=== PATIENT | male | born 1995 | race Caucasian/White ===

== ENCOUNTER 2017-12-15 05:55 | Inpatient (IN) | payer BC ==
[~2017-12-15] VITALS: Ht 190.5 cm; Wt 131.7 kg
[2017-12-15] VITALS (9 sets, daily range): BP systolic 121–162; BP diastolic 57–96; PULSE 55–73; RESP 16–20; TEMP 97.6–98.4; O2SAT 8–100
--- NOTE | 2017-12-15 06:53 | PD ---
HPI Chief Complaint: Chest Pain Time Seen by Provider: 06:47 Travel History International Travel<30 days: No Contact w/Intl Traveler<30days: No Traveled to known affect area: No History of Present Illness HPI 22-year-old male presents to the emergency department by a nonemergent transport from home for complaint of retrosternal chest pain that has been intermittent for the past 3 evenings. Patient is concerned because he is visiting from [place]. Patient reportedly was diagnosed with possibly endocarditis or pericarditis a urinary half ago. Patient denies any fever chills. Patient's had no recent respiratory illness. Patient states when he was diagnosed for this condition he stated the hospital for 4 days and then was discharged on some type of medication but he can't report was but specifically was not an antibiotic. Patient denies substance use alcohol use or tobacco use. Patient has no family history of cardiac disease. Patient denies family history or personal history of clotting disorder. Patient is not noticed any swelling or pain in the lower extremities after his plane flight. Patient does not describe the pain is pleuritic in nature. Patient is not noted any shortness of breath. Patient states after arriving here he did eat out for dinner and that evening did have episodes of vomiting and diarrhea. Patient states he's never had issues with his esophagitis or reflux. Patient states that he takes acetaminophen and it resolves the discomfort. Patient states he takes acetaminophen 3 hours prior to arrival to the emergency department this morning and he is pain-free. Patient denies other concerns or complaints. Patient presently has no history of hypertension dyslipidemia diabetes or tobaccoism. No family history premature onset heart disease. PFSH Past Medical History Narrative Medical Possible endocarditis versus pericarditis; no tobacco use no substance use no surgery; nursing notes reviewed Cardiovascular Problems: Yes (POSS ENDOCARDITIS) Diminished Hearing: No Musculoskeletal: Yes (HC DISLOCATED RIGHT KNEE) Past Surgical History Surgical History: No Previous Surgery Social History Alcohol Use: Yes (OCC) Tobacco Use: No Substance Use: Yes (WEED) Allergies-Medications (Allergen,Severity, Reaction): Coded Allergies: No Known Allergies (Unverified , 12/15/17) Reported Meds & Prescriptions Reported Meds & Active Scripts Active No Active Prescriptions or Reported Medications Narrative Medication Acetaminophen Review of Systems Except as stated in HPI: all other systems reviewed are Neg General / Constitutional: No: Fever, Chills HENT: No: Congestion Cardiovascular: Positive: Chest Pain or Discomfort, No: Diaphoresis Respiratory: No: Cough, Shortness of Breath, Wheezing Gastrointestinal: Positive: Nausea, Vomiting, Diarrhea, No: Abdominal Pain Genitourinary: No: Urgency, Frequency, Dysuria Musculoskeletal: No: Myalgias, Arthralgias Skin: No Rash Neurologic: No: Weakness, Dizziness, Syncope Psychiatric: No: Anxiety Hematologic/Lymphatic: No: Easy Bruising Physical Exam Narrative GENERAL: Well-developed well-nourished female in no acute distress no respiratory distress SKIN: Warm and dry. HEAD: Normocephalic. EYES: No scleral icterus. No injection or drainage. NECK: Supple, trachea midline. No JVD or lymphadenopathy. CARDIOVASCULAR: Regular rate and rhythm without murmurs, gallops, or rubs. No rubs no murmurs. RESPIRATORY: Breath sounds equal bilaterally. No accessory muscle use. GASTROINTESTINAL: Abdomen soft, non-tender, nondistended. MUSCULOSKELETAL: No cyanosis, or edema. Bilateral radial and dorsalis pedis pulses 2+ to palpation and negative Homans sign and no posterior calf cording. BACK: Nontender without obvious deformity. No CVA tenderness. Data Data Last Documented VS Vital Signs Date Time Temp Pulse Resp B/P (MAP) Pulse Ox O2 Delivery O2 Flow Rate FiO2 12/15/17 06:46 100 Room Air 12/15/17 06:24 68 12/15/17 05:56 98.0 16 Orders Orders Electrocardiogram (12/15/17 ) Complete Blood Count With Diff (12/15/17 06:44) Basic Metabolic Panel (Bmp) (12/15/17 06:44) Ckmb (Isoenzyme) Profile (12/15/17 06:44) Troponin I (12/15/17 06:44) Chest, Single Ap (12/15/17 06:44) Iv Access Insert/Monitor (12/15/17 06:44) Ecg Monitoring (12/15/17 06:44) Oxygen Administration (12/15/17 06:44) Oximetry (12/15/17 06:44) MDM Medical Decision Making Medical Screen Exam Complete: Yes Emergency Medical Condition: Yes Medical Record Reviewed: Yes Interpretation(s) EKG is sinus rhythm rate of [address] elevation or injury pattern noted nonspecific lateral T-wave changes Differential Diagnosis Chest pain, atypical chest pain, PE, ACS, NH, pericarditis, unlikely endocarditis or myocarditis; esophageal spasm also to consider Eliana-Ramos tear unlikely Boerhaave's Narrative Course Well-developed well-nourished 22-year-old male presents to the emergency department for 3 days of intermittent chest discomfort that resolves with acetaminophen; patient placed on monitoring analyst continuous pulse oximetry IV access obtained specimens collected and sent for resulting EKG performed and no evidence for acute ST elevation injury. @ 0700 care signed over to oncoming MD Diagnosis Primary Impression: Chest pain Scripts No Active Prescriptions or Reported Meds Charis Moran MD Dec 15, 2017 06:53
--- NOTE | 2017-12-15 06:57 | PD ---
Physical Exam Date Seen by Provider: Dec 15, 2017 Time Seen by Provider: 06:55 Narrative The patient is a 22-year-old male was initially evaluated by the previous physician, Dr. Moran. Please refer to the initial history, physical, diagnostic evaluation, and treatment modality plan. The patient was signed out at 7 AM laboratory evaluation pending. Data Data Last Documented VS Vital Signs Date Time Temp Pulse Resp B/P (MAP) Pulse Ox O2 Delivery O2 Flow Rate FiO2 12/15/17 06:58 98.2 71 18 128/72 (90) 98 Room Air Orders Orders Electrocardiogram (12/15/17 ) Complete Blood Count With Diff (12/15/17 06:44) Basic Metabolic Panel (Bmp) (12/15/17 06:44) Ckmb (Isoenzyme) Profile (12/15/17 06:44) Troponin I (12/15/17 06:44) Chest, Single Ap (12/15/17 06:44) Iv Access Insert/Monitor (12/15/17 06:44) Ecg Monitoring (12/15/17 06:44) Oxygen Administration (12/15/17 06:44) Oximetry (12/15/17 06:44) Aspirin Chew (Aspirin Chew) (12/15/17 07:00) CKMB (12/15/17 06:47) CKMB% (12/15/17 06:47) Potassium Chloride (Kcl) (12/15/17 08:00) Labs Laboratory Tests Test 12/15/17 06:47 White Blood Count 8.3 TH/MM3 Red Blood Count 5.21 MIL/MM3 Hemoglobin 15.9 GM/DL Hematocrit 45.9 % Mean Corpuscular Volume 88.2 FL Mean Corpuscular Hemoglobin 30.5 PG Mean Corpuscular Hemoglobin Concent 34.6 % Red Cell Distribution Width 13.3 % Platelet Count 249 TH/MM3 Mean Platelet Volume 7.7 FL Neutrophils (%) (Auto) 54.2 % Lymphocytes (%) (Auto) 33.9 % Monocytes (%) (Auto) 9.8 % Eosinophils (%) (Auto) 1.7 % Basophils (%) (Auto) 0.4 % Neutrophils # (Auto) 4.5 TH/MM3 Lymphocytes # (Auto) 2.8 TH/MM3 Monocytes # (Auto) 0.8 TH/MM3 Eosinophils # (Auto) 0.1 TH/MM3 Basophils # (Auto) 0.0 TH/MM3 CBC Comment DIFF FINAL Differential Comment Blood Urea Nitrogen 14 MG/DL Creatinine 0.70 MG/DL Random Glucose 91 MG/DL Calcium Level 9.1 MG/DL Sodium Level 138 MEQ/L Potassium Level 3.4 MEQ/L Chloride Level 103 MEQ/L Carbon Dioxide Level 26.2 MEQ/L Anion Gap 9 MEQ/L Estimat Glomerular Filtration Rate 139 ML/MIN Total Creatine Kinase 423 U/L Creatine Kinase MB 41.0 NG/ML Creatine Kinase MB % 9.7 % Troponin I 7.20 NG/ML [facility] Medical Record Reviewed: Yes Supervised Visit with CODY: No Interpretation(s) EKG reveals normal sinus rhythm with a rate of 70. Moderate intraventricular conduction delay with QRS of [address] changes. Inverted T-wave noted in lead 1 and aVL. Laboratory Tests Test 12/15/17 06:47 White Blood Count 8.3 TH/MM3 Red Blood Count 5.21 MIL/MM3 Hemoglobin 15.9 GM/DL Hematocrit 45.9 % Mean Corpuscular Volume 88.2 FL Mean Corpuscular Hemoglobin 30.5 PG Mean Corpuscular Hemoglobin Concent 34.6 % Red Cell Distribution Width 13.3 % Platelet Count 249 TH/MM3 Mean Platelet Volume 7.7 FL Neutrophils (%) (Auto) 54.2 % Lymphocytes (%) (Auto) 33.9 % Monocytes (%) (Auto) 9.8 % Eosinophils (%) (Auto) 1.7 % Basophils (%) (Auto) 0.4 % Neutrophils # (Auto) 4.5 TH/MM3 Lymphocytes # (Auto) 2.8 TH/MM3 Monocytes # (Auto) 0.8 TH/MM3 Eosinophils # (Auto) 0.1 TH/MM3 Basophils # (Auto) 0.0 TH/MM3 CBC Comment DIFF FINAL Differential Comment Blood Urea Nitrogen 14 MG/DL Creatinine 0.70 MG/DL Random Glucose 91 MG/DL Calcium Level 9.1 MG/DL Sodium Level 138 MEQ/L Potassium Level 3.4 MEQ/L Chloride Level 103 MEQ/L Carbon Dioxide Level 26.2 MEQ/L Anion Gap 9 MEQ/L Estimat Glomerular Filtration Rate 139 ML/MIN Total Creatine Kinase 423 U/L Troponin I 7.20 NG/ML Differential Diagnosis Differential diagnoses includes endocarditis, pericarditis, myocarditis, ACS, pulmonary embolism, pleurisy, pneumonia, GERD, esophageal spasm, esophagitis, viral syndrome. Narrative Course The patient is a 22-year-old male was initially evaluated by the previous physician, Dr. Moran. Please refer to the initial history, physical, diagnostic evaluation, and treatment modality plan. The patient was signed out at 7 AM with laboratory evaluation pending. The patient has no hypoxia and no tachycardia, I doubt pulmonary embolism. Chest x-ray is unremarkable. The patient's troponin was elevated at 7.2. The patient states he had a hospitalization about a year and a half ago, was admitted to the hospital for 4 days, was diagnosed with possibly pericarditis or myocarditis at that time. He states there was no IV antibiotics and he was discharged after 4 days. He denies any history of IV drug use or known endocarditis. He does have a history of hypertension but takes no medications. He denies any known history of hyperlipidemia, diabetes, tobacco use, or early family history for coronary artery disease. The patient is currently in the local area for business, is from [place], [place]. The patient was reevaluated at 7:40 AM when his troponin results were called, he was currently chest pain-free. The patient did receive aspirin by Dr. Moran. A call was placed to the on-call punchboard inserter on-call medical team for admission. It appears the patient may have myocarditis versus NSTEMI. The patient may also need CT pulmonary angiogram, as a cause of his elevated troponin. Physician Communication Physician Communication A call was placed to the on-call punchboard inserter. A call was placed to the on- call medical team. I discussed the patient with Dr. Palmer who agrees with admission. Diagnosis Primary Impression: Chest pain Qualified Codes: R07.9 - Chest pain, unspecified Additional Impression: Elevated troponin Admitting Information Admitting Physician Requests: Admit Scripts No Active Prescriptions or Reported Meds Condition: Stable Jori Fallon MD Dec 15, 2017 06:57
[2017-12-15] MEDS ORDERED: ASPIRIN 81 MG CHEW TAB CHEW ONE (07:00)
[2017-12-15 07:01] LABS: AUTOMATED NEUTROPHIL # 4.5 TH/MM3 (1.8-7.7); BASOPHIL % 0.4 % (0.0-2.0); EOSINOPHIL # 0.1 TH/MM3 (0-0.4); EOSINOPHIL % 1.7 % (0.0-4.0); HEMATOCRIT 45.9 % (39.0-51.0); HEMOGLOBIN 15.9 GM/DL (13.0-17.0); LYMPH % 33.9 % (9.0-44.0); LYMPHOCYTE # 2.8 TH/MM3 (1.0-4.8); MEAN CELL VOLUME 88.2 FL (80.0-100.0); MEAN CORPUSCULAR HEMOGLOBIN 30.5 PG (27.0-34.0); MEAN CORPUSCULAR HGB CONC 34.6 % (32.0-36.0); MEAN PLATELET VOLUME 7.7 FL (7.0-11.0); MONO % 9.8 % (0.0-8.0); MONOCYTE # 0.8 TH/MM3 (0-0.9); NEUT % 54.2 % (16.0-70.0); PLATELET COUNT 249 TH/MM3 (150-450); RED BLOOD COUNT 5.21 MIL/MM3 (4.50-5.90); RED CELL DISTRIBUTION WIDTH 13.3 % (11.6-17.2); WHITE BLOOD COUNT 8.3 TH/MM3 (4.0-11.0)
--- NOTE | 2017-12-15 07:16 | RADRPT ---
EXAM DATE/TIME: 12/15/2017 06:58 [facility] COMPARISON: No previous studies available for comparison. INDICATIONS : Chest pain. MEDICAL HISTORY : None. SURGICAL HISTORY : None. ENCOUNTER: Initial ACUITY: 1 day PAIN SCORE: 8/10 LOCATION: Bilateral upper chest FINDINGS: A single view of the chest demonstrates the lungs to be symmetrically aerated without evidence of mas s, infiltrate or effusion. The cardiomediastinal contours are unremarkable. Osseous structures are intact. CONCLUSION: Normal examination for a patient of this age. Artie Alonzo MD on December 15, 2017 at 7:13 Board Certified Radiologist. This report was verified electronically.
[2017-12-15 07:19] LABS: BICARBONATE 26.2 MEQ/L (21.0-32.0); CALCIUM 9.1 MG/DL (8.5-10.1); CREATININE 0.7 MG/DL (0.60-1.30)
[2017-12-15 07:35] LABS: TROPONIN I 7.2 NG/ML (0.02-0.05)
[2017-12-15] MEDS ORDERED: POTASSIUM CHLORIDE 20 MEQ CONTROLLED RELEASE TAB PO ONE (08:00)
--- NOTE | 2017-12-15 09:23 | HHI.HP ---
HPI Service Family Medicine Primary Care Physician No Primary Care Physician Admission Diagnosis chest pain with elevated troponin rule out ACS versus myocarditis Diagnoses: International Travel<30 Days: No Contact w/Intl Traveler<30days: No Known Affected Area: No History of Present Illness Patient is a 22-year-old male with a past medical history of elevated troponins and pericarditis in 2017, presenting with 3 nights of chest pain. Friday and Friday night started feeling chest pain similar to last year, but it went away with tylenol. Friday night it came back and he got worried. His chest pain is right in the midsternal area and feels like an ache, not a pressure. Does not feel like heartburn. Pain does not increase when he applies pressure. Pain feels the same as his pain 1.5 years ago in [place] at [facility]. He thinks they said he had pericarditis and he had to stay in the hospital for 4 days. At that time he also had flu-like sx and fever of 106. They pb spinal fluid and he doesn't think they found out exactly what it was. He did follow up with a meter calibrator 1 year ago. He thinks it is possible he is over-due for a cardiology checkup. Pt vomited once from the pain (Friday night) and he has had diarrhea 6x/day since Friday. He does not feel nausea or radiation of the pain down either arm. When he takes 2 tylenol extra stength the pain goes away pretty easily. His last tylenol was at 3AM this morning. He feels a lingering sensation right now during the day. He states the pain only comes at night so he knows it will come later. Denies any fever/chills this week. Denies any constitutional sx; no excessive fatigue, headache, weight changes, loss of appetite. Review of Systems Constitutional: DENIES: Fever, Weight loss Endocrine: DENIES: Polydipsia, Polyuria Eyes: DENIES: Eye pain, Vision loss Ears, nose, mouth, throat: DENIES: Tinnitus, Hearing loss Respiratory: DENIES: Wheezing, Hemoptysis Cardiovascular: DENIES: Lower Extremity Edema, Orthopnea Gastrointestinal: DENIES: Black stools, Bloody stools Genitourinary: DENIES: Urinary incontinence, Urgency Musculoskeletal: DENIES: Muscle aches, Stiffness Integumentary: DENIES: Rash Hematologic/lymphatic: DENIES: Lymphadenopathy Immunologic/allergic: DENIES: Urticaria Neurologic: DENIES: Localized weakness, Paresthesias Psychiatric: DENIES: Agitation, Suicidal Ideation Past Family Social History Past Medical History Pericarditis 2017 Dislocated knee Allergies: Coded Allergies: No Known Allergies (Unverified , 12/15/17) Family History Aunts(M) : DM Mom : DM No deaths at young age No hx of heart disease Social History Live in [facility], [employer] 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 SKIN: No rashes, ecchymoses or lesions. Cool and dry. HEAD: Atraumatic. Normocephalic. No temporal or scalp tenderness. EYES: Pupils equal round and reactive. Extraocular motions intact. No scleral icterus. No injection or drainage. ENT: Nose without bleeding, purulent drainage or septal hematoma. Throat without erythema, tonsillar hypertrophy or exudate. Uvula midline. Airway patent. NECK: Trachea midline. No JVD or lymphadenopathy. Supple, nontender, no meningeal signs. CARDIOVASCULAR: Regular rate and rhythm without murmurs, gallops, or rubs. RESPIRATORY: Clear to auscultation. Breath sounds equal bilaterally. No wheezes , rales, or rhonchi. GASTROINTESTINAL: Abdomen soft, non-tender, nondistended. No hepato-splenomegaly , or palpable masses. No guarding. MUSCULOSKELETAL: Extremities without clubbing, cyanosis, or edema. No joint tenderness, effusion, or edema noted. No calf tenderness. Negative Homans sign bilaterally. NEUROLOGICAL: Awake and alert. Cranial nerves II through XII intact. Motor and sensory grossly within normal limits. Five out of 5 muscle strength in all muscle groups. Normal speech. Laboratory Laboratory Tests Test 12/15/17 06:47 White Blood Count 8.3 Red Blood Count 5.21 Hemoglobin 15.9 Hematocrit 45.9 Mean Corpuscular Volume 88.2 Mean Corpuscular Hemoglobin 30.5 Mean Corpuscular Hemoglobin Concent 34.6 Red Cell Distribution Width 13.3 Platelet Count 249 Mean Platelet Volume 7.7 Neutrophils (%) (Auto) 54.2 Lymphocytes (%) (Auto) 33.9 Monocytes (%) (Auto) 9.8 Eosinophils (%) (Auto) 1.7 Basophils (%) (Auto) 0.4 Neutrophils # (Auto) 4.5 Lymphocytes # (Auto) 2.8 Monocytes # (Auto) 0.8 Eosinophils # (Auto) 0.1 Basophils # (Auto) 0.0 CBC Comment DIFF FINAL Differential Comment Blood Urea Nitrogen 14 Creatinine 0.70 Random Glucose 91 Calcium Level 9.1 Sodium Level 138 Potassium Level 3.4 Chloride Level 103 Carbon Dioxide Level 26.2 Anion Gap 9 Estimat Glomerular Filtration Rate 139 Total Creatine Kinase 423 Creatine Kinase MB 41.0 Creatine Kinase MB % 9.7 Troponin I 7.20 Result Diagram: 12/15/1747 12/15/17 0647 Septic Shock Reassessment Septic shock perfusion: reassessment completed Caprini VTE Risk Assessment Caprini VTE Risk Assessment: No/Low Risk (score <= 1) Caprini Risk Assessment Model Point Value = 1 Point Value = 2 Point Value = 3 Point Value = 5 Age 41-60 Minor surgery BMI > 25 kg/m2 Swollen legs Varicose veins or History of unexplained or recurrent spontaneous Oral contraceptives or hormone replacement Sepsis (< 1 month) Serious lung disease, including pneumonia (< 1 month) Abnormal pulmonary function Acute myocardial infarction Congestive heart failure (< 1 month) History of inflammatory bowel disease Medical patient at bed rest Age 61-74 Arthroscopic surgery Major open surgery (> 45 min) Laparoscopic surgery (> 45 min) Malignancy Confined to bed (> 72 hours) Immobilizing plaster cast Central venous access Age >= 75 History of VTE Family history of VTE Factor V Leiden Prothrombin [id number] Lupus anticoagulant Anticardiolipin antibodies Elevated serum homocysteine Heparin-induced thrombocytopenia Other congenital or acquired thrombophilia Stroke (< 1 month) Elective arthroplasty Hip, pelvis, or leg fracture Acute spinal cord injury (< 1 month) Prophylaxis Regimen Total Risk Factor Score Risk Level Prophylaxis Regimen 0-1 Low Early ambulation 2 Moderate Order ONE of the following: *Sequential Compression Device (SCD) *Heparin 5000 units SQ BID 3-4 Higher Order ONE of the following medications: *Heparin 5000 units SQ TID *Enoxaparin/Lovenox 40 mg SQ daily (WT < 150 kg, CrCl > 30 mL/min) *Enoxaparin/Lovenox 30 mg SQ daily (WT < 150 kg, CrCl > 10-29 mL/min) *Enoxaparin/Lovenox 30 mg SQ BID (WT < 150 kg, CrCl > 30 mL/min) AND/OR *Sequential Compression Device (SCD) 5 or more Highest Order ONE of the following medications: *Heparin 5000 units SQ TID (Preferred with Epidurals) *Enoxaparin/Lovenox 40 mg SQ daily (WT < 150 kg, CrCl > 30 mL/min) *Enoxaparin/Lovenox 30 mg SQ daily (WT < 150 kg, CrCl > 10-29 mL/min) *Enoxaparin/Lovenox 30 mg SQ BID (WT < 150 kg, CrCl > 30 mL/min) AND *Sequential Compression Device (SCD) Assessment and Plan Assessment and Plan Patient is a 22-year-old male with a past medical history of elevated troponins and pericarditis in 2017, presents with chest pain and elevated troponins. Code Status pending cardiac w/u and clearance Problem List: (1) Elevated troponin ICD Codes: R74.8 - Abnormal levels of other serum enzymes Status: Acute Plan: Initial elevated troponin, EKG with conduction delay, and chest pain ACS versus other cause of cardiac stress (hypertension, cardiomyopathy, CHF, myocarditis, pericarditis, strenuous exercise, endocarditis, arrhythmia) versus noncardiac ( PE versus sepsis versus severe anemia) f/u troponin trend f/u EKG trend Initial BP 137/95, follow-up blood pressures Follow-up echocardiogram Initial CPK increased, follow-up CPK trend Follow-up acute phase reactant; ESR, CRP, WBC Follow up temps f/u D-Dimer (2) Chest pain ICD Codes: R07.9 - Chest pain, unspecified Status: Acute Plan: Follow-up ACS workup as above Nitroglycerin ointment 2% for chest pain Will consider morphine 2 mg IV for unremitting chest pain Aspirin 325 by mouth daily Atorvastatin 40 daily telemetry Follow up lipid panel in the a.m. Follow-up A1c Follow-up magnesium Consult cardiology Follow up LFTs, TSH, BNP, echo Chest x-ray: Normal (3) Drug use ICD Codes: F19.90 - Other psychoactive substance use, unspecified, uncomplicated Status: Chronic Plan: Possible cause of cardiac ischemia? UDS positive for cannabinoids CIWA protocol (4) FEN/PPX Status: Chronic Plan: Fluids: By mouth fluids, maintenance fluids Electrolytes: BMP normal follow-up BMP Nutrition: Regular diet, heart healthy diet GI prophylaxis: Not indicated DVT prophylaxis: Not indicated, no heparin at this time per cardiology Physician Certification 2 Midnight Certification Type: Admission for Inpatient Services Order for Inpatient Services The services are ordered in accordance with Medicare regulations or non- Medicare payer requirements, as applicable. In the case of services not specified as inpatient-only, they are appropriately provided as inpatient services in accordance with the 2-midnight benchmark. Estimated LOS (days): 2 days is the estimated time the patient will need to remain in the hospital, assuming treatment plan goals are met and no additional complications. Post-Hospital Plan: Home Problem Qualifiers (1) Chest pain: Qualified Codes: R07.9 - Chest pain, unspecified Eliana Palmer MD R2 Dec 15, 2017 09:23
[2017-12-15] MEDS ORDERED: LORazepam 2 MG TAB PO PRN (09:45)
[2017-12-15] MEDS ORDERED: LORazepam 2 MG/ML VIAL IV PUSH PRN ×4 (09:45)
[2017-12-15] MEDS ORDERED: FLUMAZENIL 0.5 MG/5 ML VIAL IV PUSH PRN (09:45)
[2017-12-15] MEDS ORDERED: ACETAMINOPHEN 325 MG TAB PO PRN (09:45)
[2017-12-15] MEDS ORDERED: NALOXONE HCL 0.4 MG/ML AMP IV PUSH PRN (09:45)
[2017-12-15] MEDS ORDERED: ZOLPIDEM TARTRATE 5 MG TAB PO PRN (09:45)
[2017-12-15] MEDS ORDERED: LORazepam 1 MG TAB PO PRN (09:45)
[2017-12-15] MEDS ORDERED: ONDANSETRON HCL 4 MG/2 ML VIAL IVP PRN (09:45)
[2017-12-15] MEDS ORDERED: NITROGLYCERIN 2% OINT 1 GM PACKET TOPICAL SCH (10:00)
[2017-12-15] MEDS ORDERED: NITROGLYCERIN 2% OINT 1 GM PACKET TOPICAL PRN (10:15)
[2017-12-15] MEDS: SODIUM CHLOR 0.9% 1000 ML INJ 1,000 ML IV SCH ×3 (10:38→21:14)
--- NOTE | 2017-12-15 12:37 | PD.CONS ---
HPI Consult Requested By Primary Care Physician No Primary Care Physician History of Present Illness 22 y/o M consulted for elevated troponins. 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 He is visiting from [place], [place]. He reports being on his usual state on health until yesterday when he developed diarrhea and subsequently chest pains. He describes the chest pain as sharp, nonradiating , localized to the middle of the chest, not related to movement or exertion and relieved by Tylenol. Denies family hx of premature CAD, chest trauma, recent URI , fevers or chills. Denies PND, leg edema, SOB, syncope, palpitations, fever, chills. Review of Systems Consitutional: DENIES: Fatigue, Fever, Chills, Weight gain, Weight loss Eyes: DENIES: Amaurosis Fugax, Change in vision HEENT: DENIES: Lightheadedness, Change in hearing Respiratory: DENIES: See HPI, Cough, Snoring, Shortness of breath, Wheezing, Sputum production Cardiovascular: COMPLAINS OF: See HPI, Chest pain Gastrointestinal: COMPLAINS OF: Vomiting, Change in bowel habits, DENIES: Nausea, Reflux, Bloody stools, Melena Genitourinary: DENIES: Urinary incontinence, Difficulty voiding Integumentary: DENIES: Rash Neurologic: DENIES: Tingling or numbness, Memory problems, Poor Balance, Stroke symptoms Musculoskeletal: DENIES: Joint pain, Muscle pain, Limited range of motion, Back pain Psychiatric: DENIES: Anxiety, Depression, Sleep disturbances Hematologic: DENIES: Bruising tendencies, Bleeding tendencies Endocrine: DENIES: Weight gain, Weight loss, Thyroid disease Past Family Social History Allergies: Coded Allergies: No Known Allergies (Unverified , 12/15/17) Past Medical History Pericarditis 2017 Dislocated knee Reported Medications Reported Meds & Active Scripts Active No Active Prescriptions or Reported Medications Active Ordered Medications Current Medications Medications (Trade) Dose Ordered Sig/Red Route Start Time Stop Time Status Last Admin Sodium Chloride 1,000 ml @ 170 mls/hr Q5H53M IV 12/15/17 10:00 12/15/17 10:38 (Tylenol) 650 mg Q4H PRN PO 12/15/17 09:45 (Zofran Inj) 4 mg Q6H PRN IVP 12/15/17 09:45 (Ambien) 5 mg HS PRN PO 12/15/17 09:45 (Narcan Inj) 0.4 mg UNSCH PRN IV PUSH 12/15/17 09:45 (Romazicon Inj) 0.2 mg Q1M PRN IV PUSH 12/15/17 09:45 (Ativan) 1 mg Q4H PRN PO 12/15/17 09:45 (Ativan Inj) 1 mg Q4H PRN IV PUSH 12/15/17 09:45 (Ativan) 2 mg Q2H PRN PO 12/15/17 09:45 (Ativan Inj) 2 mg Q2H PRN IV PUSH 12/15/17 09:45 (Ativan Inj) 2 mg Q1H PRN IV PUSH 12/15/17 09:45 (Ativan Inj) 2 mg Q15M PRN IV PUSH 12/15/17 09:45 (Aspirin) 325 mg DAILY PO 12/16/17 09:00 (Lipitor) 40 mg HS PO 12/15/17 21:00 (Nitroglycerin 2% Oint) 0.5 inch Q6HR PRN TOPICAL 12/15/17 10:15 Family History Aunts(M) : DM Mom : DM No deaths at young age No hx of heart disease Social History Live in [facility], [place] [employer] 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 SKIN: Warm and dry. HEAD: Normocephalic. EYES: No scleral icterus. No injection or drainage. NECK: Supple, trachea midline. No JVD or lymphadenopathy. CARDIOVASCULAR: Regular rate and rhythm without murmurs, gallops, or rubs. RESPIRATORY: Breath sounds equal bilaterally. No accessory muscle use. GASTROINTESTINAL: Abdomen soft, non-tender, nondistended. EXTREMITIES: No cyanosis, or edema. NEUROLOGICAL: Awake, alert, and oriented x 3. Non-focal. Laboratory Laboratory Tests Test 12/15/17 06:47 White Blood Count 8.3 Red Blood Count 5.21 Hemoglobin 15.9 Hematocrit 45.9 Mean Corpuscular Volume 88.2 Mean Corpuscular Hemoglobin 30.5 Mean Corpuscular Hemoglobin Concent 34.6 Red Cell Distribution Width 13.3 Platelet Count 249 Mean Platelet Volume 7.7 Neutrophils (%) (Auto) 54.2 Lymphocytes (%) (Auto) 33.9 Monocytes (%) (Auto) 9.8 Eosinophils (%) (Auto) 1.7 Basophils (%) (Auto) 0.4 Neutrophils # (Auto) 4.5 Lymphocytes # (Auto) 2.8 Monocytes # (Auto) 0.8 Eosinophils # (Auto) 0.1 Basophils # (Auto) 0.0 CBC Comment DIFF FINAL Differential Comment Blood Urea Nitrogen 14 Creatinine 0.70 Random Glucose 91 Calcium Level 9.1 Sodium Level 138 Potassium Level 3.4 Chloride Level 103 Carbon Dioxide Level 26.2 Anion Gap 9 Estimat Glomerular Filtration Rate 139 Total Creatine Kinase 423 Creatine Kinase MB 41.0 Creatine Kinase MB % 9.7 Troponin I 7.20 Result Diagram: 12/15/17 0647 12/15/17 0647 Imaging Last Impressions Chest X-Ray 12/15/17 0644 Signed Impressions: Service Date/Time: Friday, December 15, 2017 06:58 - CONCLUSION: Normal examination for a patient of this age. Artie Alonzo MD Assessment and Plan Problem List: (1) Chest pain ICD Codes: R07.9 - Chest pain, unspecified Status: Acute Plan: Atypical chest pain and Elevated troponin on a patient with PMHx significant for perimyocarditis. Preserved EF on ECHO. Unlikely to be ACS. Recs: No heparin. Continue medical management Get records from [place], [place]. Will consider C in AM. Chest CTA to r/o PE. (2) Elevated troponin ICD Codes: R74.8 - Abnormal levels of other serum enzymes Status: Acute Problem Qualifiers (1) Chest pain: Qualified Codes: R07.9 - Chest pain, unspecified Froy Hanley MD Dec 15, 2017 12:37
[2017-12-15 13:46] LABS: TROPONIN I 8.8 NG/ML (0.02-0.05)
--- NOTE | 2017-12-15 16:00 | EKG ---
Date Performed: 12/15/2017 Time Performed: 06:20:42 PTAGE: 22 years EKG: Sinus rhythm BORDERLINE LEFT AXIS DEVIATION MODERATE INTRAVENTRICULAR CONDUCTION DELAY ST DEVIATION AND MODERATE T-WAVE ABNORMALITY ABNORMAL ECG NO PREVIOUS TRACING DOCTOR: Rosendo Reyes Interpretating Date/Time 12/15/2017 15:59:23
--- NOTE | 2017-12-15 16:39 | HHI.FPPN ---
Subjective Remarks Attending note: Very pleasant 22-year-old gentleman from [place], [place] admitted to [facility] with a chief complaint of chest pain. Notable that one and half years ago the patient had an admission to a [place] [place] [facility] for what he remembers a similar pain. He recalls having had fever, vomiting, diarrhea, chills and rigors. He was hospitalized for 4 days, was not allowed to return to work for 2 months and in this illness had hypoxia with his oxygen saturation in the 80s. He was told that this was probably a virus. Has felt well over the past year until he flew commercially from [facility] to [facility] on 12/11/17. 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 On the evening of 12/12/17 patient had approximately an hour of substernal chest pain nonradiating, no nausea, vomiting or diaphoresis. Patient points to his mid chest. He works 10 hours and the following day and had no discomfort. Chest pain subsequently occurred the last 2 nights. Presented to the emergency room with the present pain. Patient states that Tylenol will completely resolve the discomfort. Was treated for hypertension after the last episode, no longer taking medications, does not report any history of diabetes, hyperlipidemia, tobacco usage or family history of premature cardiovascular disease. Patient currently comfortable. Of note on review of systems patient has had what he describes as significant diarrhea since the onset on 12/12/16. Please refer to the resident's history and physical for complete discussion of past medical history, family history, social history, review of systems. Objective Vitals Vital Signs Date Time Temp Pulse Resp B/P (MAP) Pulse Ox O2 Delivery O2 Flow Rate FiO2 12/15/17 15:15 12/15/17 13:16 64 18 133/60 (84) 98 Room Air 12/15/17 10:15 72 18 127/57 (80) 98 Room Air 12/15/17 06:58 98.2 71 18 128/72 (90) 98 Room Air 12/15/17 06:46 100 Room Air 12/15/17 06:24 68 12/15/17 05:56 98.0 71 16 137/95 (109) 100 Room Air I/O 12/14/17 12/14/17 12/14/17 12/15/17 12/15/1715/18 07:00 15:00 23:00 07:00 15:00 23:00 Output Total 450 ml Balance -450 ml Output Urine Total 450 ml # Voids 1 Result Diagram: 12/15/17 0647 12/15/17646 Objective Remarks Vital signs noted blood pressure 133/60. Pulse 64, oxygen saturation 98% on room. Gen. appearance: Healthy young gentleman, pleasant conversation, normal affect, good eye contact. HEENT: Grossly nonlocalizing Lungs: Clear to auscultation Cardiac: S1-S2, no irregular rhythm, no pericardial rubs appreciated, no S3. Abdomen: Evidence of striae no organomegaly, no tenderness, no masses. Extremities: Intact pedal pulses, no edema, feet are warm and dry. 2 EKGs reviewed revealing no acute signs of cardiac abnormalities. Trending upward CK-MB and troponin levels as well as CK. CK-MB 9.7% trended to 10.4%, troponin 7.9 and trended to 8.8, CK 423 attending 501. A/P Assessment and Plan Clinical assessment: Substernal chest pain lasting one hour occurring over the last 3 evenings without radiation, without associated nausea, vomiting or diaphoresis. History of what the patient reports a similar pain 1.5 years ago in [facility]. EKG revealed changes however cardiac enzymes including CK, CPK and troponin are of concern. Discussed with Dr. Froy Bailey, heart city manager, records are pending from [place]. Currently the patient is very comfortable. Also a history significant diarrhea, consider stool studies. Follow clinically. Case discussed with resident team, physician concurs with resident team assessment and plan, and orders as written. Noman Corado MD Dec 15, 2017 16:39
--- NOTE | 2017-12-15 20:56 | ECHRPT ---
Indication: cp CONCLUSIONS Normal left ventricular size. Estimated left ventricular function 60-65% Trace mitral valve regurgitation. There is mild tricuspid valve regurgitation. The pulmonary valve is not well visualized. BP: / HR: Rhythm: Technical Quality:Fair FINDINGS LEFT VENTRICLE Normal left ventricular size. The left ventricular systolic function is normal with an estimated ejection fraction in the range of 60-65%. RIGHT VENTRICLE Normal right ventricular size and systolic function. LEFT ATRIUM The left atrial size is normal. RIGHT ATRIUM The right atrial size is normal. ATRIAL SEPTUM Normal atrial septal thickness without atrial level shunting by limited color doppler interrogation. AORTA The aortic root and proximal ascending aorta are normal in size on limited imaging. MITRAL VALVE Structurally normal mitral valve. Trace mitral valve regurgitation. AORTIC VALVE Trileaflet aortic valve. No aortic valve stenosis or regurgitation. TRICUSPID VALVE Structurally normal tricuspid valve. There is mild tricuspid valve regurgitation. . PULMONARY VALVE The pulmonary valve is not well visualized. VESSELS The inferior vena cava is normal in size. PERICARDIUM No pericardial effusion. Froy Hanley MD (Electronically Signed) Final Date:15 December 2017 20:55
[2017-12-15] MEDS: ATORVASTATIN 40 MG TAB PO SCH (21:14)
[2017-12-16] VITALS (8 sets, daily range): BP systolic 108–150; BP diastolic 63–72; PULSE 47–81; RESP 17–20; TEMP 97.6–98.1; O2SAT 96–98
[2017-12-16 00:03] LABS: ALBUMIN 3.4 GM/DL (3.4-5.0); ALT (GPT) 43 U/L (12-78); AST (GOT) 44 U/L (15-37); DIRECT BILIRUBIN ADULT 0.2 MG/DL (0.0-0.2); MAGNESIUM 1.9 MG/DL (1.5-2.5)
[2017-12-16 00:07] LABS: ALKALINE PHOSPHATASE 54 U/L (45-117); INDIRECT BILIRUBIN 0.5 MG/DL (0.0-0.8); TOTAL BILIRUBIN ADULT 0.7 MG/DL (0.2-1.0); TOTAL PROTEIN 6.8 GM/DL (6.4-8.2)
[2017-12-16 00:09] LABS: TROPONIN I 4.53 NG/ML (0.02-0.05)
[2017-12-16] MEDS: SODIUM CHLOR 0.9% 1000 ML INJ 1,000 ML IV SCH ×2 (03:14→12:40)
[2017-12-16] MEDS: ASPIRIN 325 MG TAB PO SCH (09:50)
[2017-12-16] MEDS ORDERED: INFLUENZA VIRUS VACCINE (QUADRIVALENT) 0.5 ML SYR IM ONE (10:00)
[2017-12-16 12:52] LABS: AUTOMATED NEUTROPHIL # 3.6 TH/MM3 (1.8-7.7); BASOPHIL % 0.5 % (0.0-2.0); EOSINOPHIL # 0.1 TH/MM3 (0-0.4); EOSINOPHIL % 1.5 % (0.0-4.0); HEMATOCRIT 45.6 % (39.0-51.0); HEMOGLOBIN 15.6 GM/DL (13.0-17.0); LYMPH % 32.3 % (9.0-44.0); MEAN CELL VOLUME 88.1 FL (80.0-100.0); MEAN CORPUSCULAR HEMOGLOBIN 30.2 PG (27.0-34.0); MEAN CORPUSCULAR HGB CONC 34.3 % (32.0-36.0); MEAN PLATELET VOLUME 7.5 FL (7.0-11.0); MONO % 5.9 % (0.0-8.0); MONOCYTE # 0.4 TH/MM3 (0-0.9); NEUT % 59.8 % (16.0-70.0); PLATELET COUNT 238 TH/MM3 (150-450); RED BLOOD COUNT 5.18 MIL/MM3 (4.50-5.90); RED CELL DISTRIBUTION WIDTH 13.1 % (11.6-17.2); WHITE BLOOD COUNT 6.1 TH/MM3 (4.0-11.0)
[2017-12-16] MEDS ORDERED: NITROGLYCERIN INJ 5 ML ONE (14:21)
[2017-12-16] MEDS ORDERED: HEPARIN-NS/PF INJ 500 ML ONE (14:21)
[2017-12-16] MEDS ORDERED: VERAPAMIL HCL 5 MG/2 ML VIAL ONE (14:21)
[2017-12-16] MEDS ORDERED: HEPARIN SODIUM - IV 10,000 UNITS/10 ML VIAL ONE (14:21)
[2017-12-16 14:35] LABS: ALBUMIN 3.5 GM/DL (3.4-5.0); AST (GOT) 36 U/L (15-37); BICARBONATE 23.4 MEQ/L (21.0-32.0); BLOOD UREA NITROGEN 10 MG/DL (7-18); CALCIUM 8.6 MG/DL (8.5-10.1); CHLORIDE 109 MEQ/L (98-107); CHOLESTEROL 127 MG/DL (120-200); CREATININE 0.57 MG/DL (0.60-1.30); GLOMERULAR FILTRATION RATE 176 ML/MIN (>89); GLUCOSE,RANDOM 124 MG/DL (74-106); SODIUM (NA) 142 MEQ/L (136-145)
[2017-12-16 14:44] LABS: ALKALINE PHOSPHATASE 54 U/L (45-117); ALT (GPT) 52 U/L (12-78); CHOLESTEROL/ HDL RATIO 3.95 RATIO; HDL CHOLESTEROL 32.1 MG/DL (40.0-60.0); LDL CHOLESTEROL 82 MG/DL (0-99); TOTAL BILIRUBIN ADULT 0.9 MG/DL (0.2-1.0); TOTAL PROTEIN 7.2 GM/DL (6.4-8.2); TRIGLYCERIDES 65 MG/DL (42-150)
[2017-12-16] MEDS ORDERED: MIDAZOLAM HCL 2 MG/2 ML VIAL ONE (14:47)
--- NOTE | 2017-12-16 14:52 | HHI.FPPN ---
Subjective Remarks Pt seen in DOCU following cardiac catheterization. He reports feeling dizzy, denies chest pain shortness of breath. He reports history of pericarditis that was believed to be viral in August of 2016. No particular virus was identified despite extensive testing. He has no additional acute concerns. Objective Vitals Vital Signs Date Time Temp Pulse Resp B/P (MAP) Pulse Ox O2 Delivery O2 Flow Rate FiO2 12/16/17 12:05 98.1 67 19 124/63 (83) 98 12/16/17 08:05 97.7 66 19 120/69 (86) 98 12/16/17 08:00 47 12/16/17 04:00 97.8 64 20 108/72 (84) 97 12/16/17 00:00 97.6 58 20 117/68 (84) 96 12/15/17 23:58 55 12/15/17 20:14 63 12/15/17 20:00 97.6 62 20 121/76 (91) 98 12/15/17 16:00 97.9 62 20 162/72 (102) 97 12/15/17 15:15 I/O 12/15/17 12/15/17 12/15/17 12/16/17 12/16/17 12/16/17 07:00 15:00 23:00 07:00 15:00 23:00 Intake Total 240 ml Output Total 450 ml Balance -450 ml 240 ml Intake Oral 240 ml Output Urine Total 450 ml # Voids 1 3 Result Diagram: 12/16/17 1139 12/16/17 1139 Objective Remarks GENERAL: This is a well-nourished, well-developed patient, in no apparent distress. SKIN: Cool and dry. HEAD: Atraumatic. Normocephalic. EYES: Extraocular motions intact. No scleral icterus. No injection or drainage. ENT: Nose without bleeding, purulent drainage or septal hematoma. Airway patent. NECK: Trachea midline. No obvious JVD or lymphadenopathy. CARDIOVASCULAR: Regular rate and rhythm without murmurs, gallops, or rubs. RESPIRATORY: Clear to auscultation. Breath sounds equal bilaterally. No wheezes , rales, or rhonchi. GASTROINTESTINAL: Abdomen soft, non-tender, nondistended. MUSCULOSKELETAL: Extremities without clubbing, cyanosis, or edema. No joint tenderness, effusion, or edema noted. No calf tenderness. Negative Homans sign bilaterally. A/P Assessment and Plan Patient is a 22-year-old male with a past medical history of elevated troponins and pericarditis in 2016, presents with chest pain and elevated troponin. Discharge Planning Anticipate discharge pending clearance by cardiology, likely 1-2 days if no additional procedures are indicated. Problem List: (1) Elevated troponin ICD Codes: R74.8 - Abnormal levels of other serum enzymes Status: Acute Plan: Initial elevated troponin, EKG with conduction delay, chest pain resolved ACS versus other cause of cardiac stress (hypertension, cardiomyopathy, CHF, myocarditis, pericarditis, strenuous exercise, endocarditis, arrhythmia) versus noncardiac ( PE versus sepsis versus severe anemia) Creatinine within normal limits, renal cause unlikely Troponin 7.2-->8.80-->4.53 Cardiology consulted, appreciate recommendations and intervention S/p left heart catheterization 12/16 Echo with EF of 60-65% D-Dimer less than 0.19 (2) Chest pain ICD Codes: R07.9 - Chest pain, unspecified Status: Acute Plan: RESOLVED See plan above Nitroglycerin ointment 2% for chest pain Aspirin 325 by mouth daily Atorvastatin 40 daily telemetry Follow-up A1c, pending BNP normal Chest x-ray: Normal (3) Drug use ICD Codes: F19.90 - Other psychoactive substance use, unspecified, uncomplicated Status: Chronic Plan: Possible cause of cardiac ischemia? UDS positive for cannabinoids, pt denies other drug use [place] protocol (4) FEN/PPX Status: Chronic Plan: Fluids: Pt tolerating PO, no additional fluids in Electrolytes: BMP normal follow-up BMP Nutrition: Regular diet, heart healthy diet GI prophylaxis: Not indicated DVT prophylaxis: Not indicated, no heparin at this time per cardiology Problem Qualifiers (1) Chest pain: Qualified Codes: R07.9 - Chest pain, unspecified Phyllis Reyes MD R3 Dec 16, 2017 14:52
[2017-12-16] MEDS ORDERED: diphenhydrAMINE HCL 50 MG/ML VIAL ONE (15:06)
--- NOTE | 2017-12-16 15:11 | CATHPROC ---
AYLIEN HIS Report Study Information Study Number Admission Scheduled Start Study Start [id number] Dec 15 2017 8:16AM 12/16/2017 Dec 16 2017 1:49PM [facility]iac Catheterization Admit Source Facility Department Emergency department [facility] - Associate Professor Of Psychology Physician and Clinical Staff Initial Froy Cabral Blanket Maker Greer Mccrary,MARIO ALBERTO Blanket MakerLukas Mcintosh,MARIO ALBERTO Recorder Shaquille Finn,RT(R) Scrub Ailin RaiRT(R) Procedures Performed Procedure Location (Site) Vessel Name Coronary Angiograms LCA Left Coronary Coronary Angiograms RCA Right Coronary L Heart Cath LV Gram-hand inj. LV LV Ventricle Equipment Time Avian Keeper Description Size Mfg Part Number Used/Scraped TRANSDUCER, TRUWAVE [id number] 14:38 Flamsred * Used W/STOCKCOCK *[id number] INTRODUCER SET, 14:38 [employer] FR 5 [id number] *[id number] Used MICROPUNCTURE, STIFFENED [id number] 14:38 Janrain PACK, CCL CUSTOM * Used *[id number] 14:54 MEDTR[employer] JL 4.0 DXTERITY CATHETER FR 5 Used *[id number] 14:34 [employer] JR 4.0 DXTERITY CATHETER FR 5 [id number] Used BAND, RADIAL COMPRESSION TR [id number] 14:58 [place] [employer] MEDICAL 29CM Used LARGE 29 *[id number] 14:38 [place] [employer] MEDICAL WIRE, 3MMJ .035 180CM 180CM Used *[id number] 14:38 NAMIC MANIFOLD, 4 PORT * Used *[id number] 14:38 [employer]ED OMNIPAQUE, 350 MG, 150ML 150ML [id number] Used [id number] 14:38 [employer] MEDICAL BLANKET,WARM AIR CCL * Used *[id number] SHEATH, FR6 TRANSRADIAL [id number] 14:50 [employer] FR 6 Used SLENDER 10CM *[id number] Equipment Model, Serial, Lot Number and Expiration Data Description Model Number Serial Number Lot Number Expiration Date JR 4.0 DXTERITY CATHETER [id number] 08-27-2020 History: Current Medications Medication Dosage/Unit Route Frequency Last Date/Time Taken ASA History: Allergies Allergy Reaction No Known Allergies History: Risk Factors Family History of Hypertension Dyslipidemia Previous NE Previous Heart Failure Premature CAD No No No No No Prior Valve Prior PCI Prior CABG Surgery No No No Cerebrovascular Peripheral Artery Chronic Lung On Dialysis Diabetes Disease Disease Disease No No No No No History: CV Disease Selection Items Pericarditis History: Stress Tests Stress or Imaging Studies Performed No History: Other Current Smoker No Labs Hgb (g/dl) Hct (%) WBC (l/cumm) Platelets (thousands) 11.60-17.00 35.00-51.00 4.00-11.00 150.00-450.00 15.9 45.9 8.3 249 Glucose (mg/dl) BUN (mg/dl) Creatinine (mg/dl) BUN:Creatinine (1:x) 74.00-106.00 7.00-18.00 0.50-1.30 10.00-20.00 91 14 0.7 20 Na (meq/l) K (meq/l) 136.00-145.00 3.50-5.10 132 3.4 Troponin I (ng/ml) Troponin T (ng/ml) CPK (u/l) CPK-MB (ng/ML) 0.02-0.05 0.40-2.10 26.00-308.00 0.50-3.60 7.2 8.8 501 Not Drawn Medication Medication Total Dose (Bolus/Oral) Medication Total Dosage/Unit 1% XYLOCAINE 5 mL FENTANYL 50 mcg RADIAL COCKTAIL 5 mL (Bolus) Medications (Bolus/Oral) Medication Time Given Dosage/Unit Administered By Reason 1% XYLOCAINE 12/16/2017 2:47:56 PM 5 mL Lynn-Froy Marcelino 5 mL 1% XYLOCAINE given in lab by Froy Hanley in Right Radial via Subcutaneous. FENTANYL 12/16/2017 2:49:05 PM 50 mcg Lukas Forman 50 mcg FENTANYL given in lab by Lukas Forman, MARIO ALBERTO in Left Antecubital via Peripheral IV. RADIAL COCKTAIL 12/16/2017 2:50:20 PM 5 mL (Bolus) Lukas Forman 5 mL (Bolus) RADIAL COCKTAIL given in lab by Lukas Forman, MARIO ALBERTO via Radial. Using [Solution Name]. Medication (Drip) Medication Time Given Dosage/Unit Concentration/Unit Diluent (ml) Solution IV Solutions 12/16/2017 2:18:04 PM 0 mL (IV) 500 NaCl .9 IV Solutions given in lab by Greer Mccrary, MARIO ALBERTO in Left Antecubital via Peripheral IV. Pump/Drip Garry w = 20 ml/hr using NaCl .9. Initial Case Assessment Cardiovascular HR Rhythm NIBP Chest Pain 78 Sinus 151/82 0 Edema Present Skin color Skin None Normal Warm Dry Circulatory - Right Pulses Dorsalis Pedis Femoral 3 3 Scale (0,1,2,3,4,d) Circulatory - Left Pulses Dorsalis Pedis Femoral 3 3 Scale (0,1,2,3,4,d) Neurological State Oriented to time-place- Alert Moves all extremities person Respiration - General Respiration Rate SpO2 (%) O2 (lpm) (B/min) 18 99 0 Final Case Assessment Cardiovascular HR Rhythm NIBP Chest Pain 77 Sinus 149/94 0 Edema Present Skin color Skin None Normal Warm Dry Circulatory - Right Pulses Dorsalis Pedis Femoral 3 3 Scale (0,1,2,3,4,d) Circulatory - Left Pulses Dorsalis Pedis Femoral 3 3 Scale (0,1,2,3,4,d) Neurological State Oriented to time-place- Alert Moves all extremities person Respiration - General Respiration Rate SpO2 (%) O2 (lpm) (B/min) 25 99 0 Chronological Log Time Study Chronological Log 14:10:35 Patient arrived via Bed. 14:10:36 Patient Name, D.O.B, / Armband Verified By R.N. 14:10:36 Consent signed by the physician and the patient and verified by the Associate Professor Of Psychology staff. 14:10:37 Pre-op and post- op instructions given; patient acknowledges understanding of instructions. 14:10:38 Verbal Stimulation=2 Physical Stimulation=2 Airway=2 Respiration=2 TOTAL=8. (0=absent, 1=li mited, 2=present) 14:10:43 Presedation assessment performed by Associate Professor Of Psychology RN. 14:10:44 Allens test performed on the right radial and ulnar artery. 14:10:49 Patient has been NPO for Less than 6Hrs. dr muir notified by geraldo francois rn. he is ok with npo [facility]. pt had lunch at 12noon 14:10:51 Skin Breakdown-none per patient. 14:11:00 Patient Warmer Placed on the Table. 14:17:41 Gregg Prominences Protected 14:17:44 A # 20 IV was noted in the Antecubital (left). Grade = 0 IV Solutions given in lab by Greer Mccrary, MARIO ALBERTO in Left Antecubital via Peripheral IV. Pump/Dr ip Flow = 20 ml/hr using 14:18:04 NaCl .9. 14:18:05 History and physical on the chart or being dictated. Assessment: Initial Case, HR=78 BPM, Rhythm=Sinus, KGGI=032/82 mmhg, Chest Pain=0, Edema=None, Color=Normal, Skin = Warm, Dry Right Pulses: Shiv Ped=3, Femoral=3 14:18:06 Left Pulses: Shiv Ped=3, Femoral=3 Neurological: State=Alert, Ox3, LOWERY Respiration: Resp=18 B/min, SpO2=99 %, O2=0 lpm Vitals capture started with the following parameters, Patient=Adult, Interval=5 min, Initial Pr nulqvd=691 mmHg, 14:18:16 Deflation Rate=5 mmHg, Cuff placed on Left Arm 14:18:46 Reference ECG taken 14:19:01 HR=68 bpm, JSXC=028/82 mmhg, SpO2=99.0 %, Resp=11 B/min, Pain=0, Blanquita=8, Orellana=2 14:24:35 HR=69 bpm, ZCKI=181/85 mmhg, SpO2=96.0 %, Resp=12 B/min, Pain=0, Blanquita=8, Orellana=2 14:28:51 HR=85 bpm, ZHNB=516/77 mmhg, SpO2=97.0 %, Resp=17 B/min, Pain=0, Blanquita=10, Orellana=2 14:31:56 Pressure channel 1 zeroed. 14:33:27 MD paged 14:34:22 HR=73 bpm, NNRH=036/87 mmhg, SpO2=93.0 %, Resp=24 B/min, Pain=0, Blanquita=8, Orellana=2 14:38:53 HR=70 bpm, JSSZ=841/83 mmhg, SpO2=95.0 %, Resp=14 B/min, Pain=0, Blanquita=8, Orellana=2 14:43:52 HR=67 bpm, BQDD=939/82 mmhg, SpO2=92.0 %, Resp=4 B/min, Pain=0, Blanquita=8, Orellana=2 14:45:47 MD arrived. Time Out. Correct patient, correct procedure, correct physician, power injector not loaded with contrast with surgical 14:47:30 team present. Time Out Concurred by MD and individual staff in procedure. 14:47:54 Case Start 14:47:56 5 mL 1% XYLOCAINE given in lab by Froy Hanley in Right Radial via Subcutaneous. 14:49:05 50 mcg FENTANYL given in lab by Lukas Forman, MARIO ALBERTO in Left Antecubital via Peripheral IV. 14:49:26 HR=69 bpm, TLOP=702/90 mmhg, SpO2=99.0 %, Resp=18 B/min, Pain=0, Blanquita=8, Orellana=2 14:49:28 Access site was Radial Artery. A INTRODUCER SET, MICROPUNCTURE, STIFFENED FR 5 was advanced into the Radial (right) using the Percutaneous 14:49:39 technique. 14:50:20 5 mL (Bolus) RADIAL COCKTAIL given in lab by Lukas Forman, MARIO ALBERTO via Radial. Using [Solution Name]. A JR 4.0 DXTERITY CATHETER FR 5 was advanced over a wire. OMNIPAQUE, 350 MG, 150ML 150ML was us ed for 14:50:23 injections. Recorded Pressure: LV, HR=86, Condition=Condition 1 14:51:47 (Left Ventricle) LV 117/5/8 14:52:05 The LV was manually injected with 8 cc's and visualized. OMNIPAQUE, 350 MG, 150ML 150ML use d. Recorded Pressure: LV, Ao, HR=85, Condition=Condition 1 14:52:16 (Left Ventricle) LV 120/6/12, (Aorta) Ao 120/87/102 14:52:39 The RCA was injected and visualized at various angles. OMNIPAQUE, 350 MG, 150ML 150ML used . Recorded Pressure: Ao, HR=78, Condition=Condition 1 14:52:55 (Aorta) Ao 117/81/96 After removing the current catheter a JR 4.0 DXTERITY CATHETER FR 5 was advanced over a WIRE, 3 MMJ .035 180CM 14:53:30 180CM. 14:53:52 HR=87 bpm, FPVG=255/86 mmhg, SpO2=92.0 %, Resp=21 B/min, Pain=0, Blanquita=8, Orellana=2 14:55:41 The LCA was injected and visualized at various angles. OMNIPAQUE, 350 MG, 150ML 150ML used . 14:56:32 Catheter was removed 14:56:53 Case End Assessment: Final Case, HR=77 BPM, Rhythm=Sinus, ZOTZ=388/94 mmhg, Chest Pain=0, Edema=None, Color=Normal, Skin = Warm, Dry Right Pulses: Shiv Ped=3, Femoral=3 14:58:18 Left Pulses: Shiv Ped=3, Femoral=3 Neurological: State=Alert, Ox3, LOWERY Respiration: Resp=25 B/min, SpO2=99 %, O2=0 lpm 14:58:51 HR=72 bpm, OYXH=097/94 mmhg, SpO2=99.0 %, Resp=22 B/min, Pain=0, Blanquita=8, Orellana=2 Radial Compression Device Used. 13 mLs of air placed in BAND, RADIAL COMPRESSION TR LARGE 29 2 9CM. Affected 14:59:31 hand 97 % O2 saturation. 14:59:53 No case complications noted. 14:59:54 Cine recording checked. 15:00:46 Bedside Report will be given. 15:00:58 A Left Heart Cath was performed. 15:11:04 Patient moved to [facility] End Study - Contrast Media Used In Study Contrast Total Opened (mL) Total Used (mL) Total Wasted (mL) Omnipaque 150 30 120 End Study - Maximum Contrast Load Max Contrast Load (mL) 941.6 End Study - Radiation Exposure Fluoro Time (minutes) 3.0 End Study - Patient Disposition Complications Transferred To Interventional Outcome No Telemetry Bed No attempt made
[2017-12-16] MEDS ORDERED: IOHEXOL 350 MG/ML 50 ML BTL (for Cath Lab) OTHER ONE (15:22)
--- NOTE | 2017-12-16 15:46 | EKG ---
Date Performed: 12/15/2017 Time Performed: 19:50:33 PTAGE: 22 years EKG: Sinus rhythm WITH SINUS ARRHYTHMIA MARKED LEFT AXIS DEVIATION POSSIBLE RIGHT VENTRICULAR CONDUCTION DELAY ABNORMA L QRS-T ANGLE Since previous tracing, no significant change noted ABNORMAL ECG PREVIOUS TRACING : 12/15/2017 13.42 DOCTOR: Anna Easley Interpretating Date/Time 12/16/2017 15:45:36
--- NOTE | 2017-12-16 15:53 | MA ---
cc: NIKA LANGLEY DATE 12/16/2017 DATE OF 1995 PROCEDURE PERFORMED 1. Left heart catheterization. 2. Selective right and left coronary angiography. 3. Left ventriculogram. INDICATIONS Chest pain, elevated troponins, vwl-AR-shvcwrsoa VT. APPROACH Right transradial. PROCEDURE DESCRIPTION Consent was signed. The patient was prepped and draped in a sterile fashion. Using 1% lidocaine for local anesthesia and a micropuncture kit a 6 [place] sheath was inserted into the right radial artery. An antispasmodic cocktail was given then selective right and left coronary angiography was performed with JR 4.0 and JL 3.5 diagnostic catheters. Angiography was taken in multiple views. The JR 4.0 diagnostic catheter was introduced into the ventricle over a wire followed by pressure recordings, left ventriculography and pullback. The patient tolerated the procedure well without complications. All catheters were exchanged over a wire. Blood loss less than 10 cc. Total contrast used 50 cc. The right wrist radial access site was closed with a TR band. RESULTS LEFT VENTRICLE The left ventricular pressure was 120/6 with an LVEDP of 12. The aortic pressure was 117/81 with a mean of 96. There was no gradient on pullback from the left ventricle to the aorta. Left ventriculogram revealed symmetric padmaja ventricle with an estimated ejection fraction of 60%. ANGIOGRAPHY 1. The right coronary artery is a dominant vessel of significant size giving off the PDA and is tortuous. The PDA and the posterolateral branches and the right coronary artery have minimal irregularities and no significant obstructive CAD. 2. The left main is patent and large giving off the LAD and the left circumflex artery. 3. The LAD is a transapical vessel with minimal luminal irregularities, no significant obstruction. It is giving two small diagonal vessels which are patent. 4. The left circumflex artery is small, however, is giving two significant obtuse marginal branches which are patent with AV-III flow and nonobstructive coronary artery disease. CONCLUSIONS 1. Nonobstructive coronary artery disease. 2. Preserved LV systolic function. PLAN/RECOMMENDATIONS The patient will go back to the DOC unit for post-cath care and continue medical management for primary prevention of CAD. Nika Langley MD DIABETES EDUCATION COORDINATOR/BT /2:57 PM /3:27 PM
[2017-12-16 18:51] LABS: HEMOGLOBIN A1C 5.7 % (4.3-6.0)
--- NOTE | 2017-12-16 19:12 | EKG ---
Date Performed: 12/15/2017 Time Performed: 13:42:37 PTAGE: 22 years EKG: SINUS BRADYCARDIA BORDERLINE LEFT AXIS DEVIATION INTRAVENTRICULAR CONDUCTION DELAY Nonspeci fic T wave changes. No serial change since the most recent tracing. ABNORMAL ECG PREVIOUS TRACING : 12/15/2017 06.20 DOCTOR: Anna Easley Interpretating Date/Time 12/16/2017 19:10:15
[2017-12-16] MEDS: ATORVASTATIN 40 MG TAB PO SCH (21:27)
[2017-12-17] VITALS (7 sets, daily range): BP systolic 125–136; BP diastolic 61–79; PULSE 53–71; RESP 16–17; TEMP 97.6–98.3; O2SAT 96–97
[2017-12-17] MEDS: ASPIRIN 325 MG TAB PO SCH (08:09)
--- NOTE | 2017-12-17 11:38 | HHI.FPPN ---
Subjective Remarks Patient seen and examined bedside this morning. Patient continues to feel a vague, barely noticeable, sensation over his chest. He states it is not pain, however he feels something on therapy. He has had no complications since the cardiac catheterization yesterday. He is eating without difficulty. He denies chest pain/shortness of breath/dizziness. He is ambulating without any difficulty. He would like to know when he can be discharged. Objective Vitals Vital Signs Date Time Temp Pulse Resp B/P (MAP) Pulse Ox O2 Delivery O2 Flow Rate FiO2 12/17/17 08:05 98.3 53 16 125/79 (94) 96 12/17/17 04:07 67 12/17/17 04:00 97.6 71 17 126/68 (87) 96 12/17/17 04:00 Room Air 12/17/17 00:18 68 12/17/17 00:00 97.6 70 17 129/71 (90) 97 12/17/17 00:00 Room Air 12/16/17 20:34 74 12/16/17 20:00 98.0 70 17 150/71 (97) 97 12/16/17 15:22 95 Room Air 12/16/17 12:05 98.1 67 19 124/63 (83) 98 12/16/17 12:00 81 I/O 12/16/17 12/16/17 12/16/17 12/17/17 12/17/17 12/17/17 07:00 15:00 23:00 07:00 15:00 23:00 Intake Total 240 ml 360 ml 240 ml Balance 240 ml 360 ml 240 ml Intake Oral 240 ml 360 ml 240 ml # Voids 3 4 1 # Bowel Movements 1 0 Result Diagram: 12/16/17 1139 12/16/17 1139 Objective Remarks GENERAL: This is a well-nourished, well-developed patient, in no apparent distress. SKIN: Cool and dry. HEAD: Atraumatic. Normocephalic. EYES: Extraocular motions intact. No scleral icterus. No injection or drainage. ENT: Nose without bleeding, purulent drainage or septal hematoma. Airway patent. NECK: Trachea midline. No obvious JVD or lymphadenopathy. CARDIOVASCULAR: Regular rate and rhythm without murmurs, gallops, or rubs. No pain with pressure over her sternum or chest area RESPIRATORY: Clear to auscultation. Breath sounds equal bilaterally. No wheezes , rales, or rhonchi. GASTROINTESTINAL: Abdomen soft, non-tender, nondistended. MUSCULOSKELETAL: Extremities without clubbing, cyanosis, or edema. No joint tenderness, effusion, or edema noted. No calf tenderness. Negative Homans sign bilaterally. A/P Assessment and Plan Patient is a 22-year-old male with a past medical history of elevated troponins and pericarditis in 2016, presents with chest pain and elevated troponin. Patient was taken to cardiac catheterization on 12/16. Discharge Planning Anticipate discharge pending clearance by cardiology Problem List: (1) Elevated troponin ICD Codes: R74.8 - Abnormal levels of other serum enzymes Status: Acute Plan: Initial elevated troponin, EKG with conduction delay, chest pain resolved ACS versus other cause of cardiac stress (hypertension, cardiomyopathy, CHF, myocarditis, pericarditis, strenuous exercise, endocarditis, arrhythmia) versus noncardiac ( PE versus sepsis versus severe anemia) Creatinine within normal limits, renal cause unlikely Troponin 7.2-->8.80-->4.53 Cardiology consulted, appreciate recommendations and intervention S/p left heart catheterization 12/16 Echo with EF of 60-65% D-Dimer less than 0.19 (2) Chest pain ICD Codes: R07.9 - Chest pain, unspecified Status: Acute Plan: RESOLVED See plan above Nitroglycerin ointment 2% for chest pain Aspirin 325 by mouth daily Atorvastatin 40 daily telemetry Hemoglobin A1c 5.7 BNP normal Chest x-ray: Normal (3) Drug use ICD Codes: F19.90 - Other psychoactive substance use, unspecified, uncomplicated Status: Chronic Plan: Possible cause of cardiac ischemia? UDS positive for cannabinoids, pt denies other drug use [facility] protocol (4) FEN/PPX Status: Chronic Plan: Fluids: Pt tolerating PO, no additional fluids in Electrolytes: BMP normal follow-up BMP Nutrition: Regular diet, heart healthy diet GI prophylaxis: Not indicated DVT prophylaxis: Not indicated, no heparin at this time per cardiology Problem Qualifiers (1) Chest pain: Qualified Codes: R07.9 - Chest pain, unspecified Eliana Palmer MD R2 Dec 17, 2017 11:38
[2017-12-17] MEDS ORDERED: POTASSIUM CHLORIDE 10 MEQ CONTROLLED RELEASE TAB PO ONE (11:45)
[2017-12-17 12:12] LABS: BASOPHIL % 0.6 % (0.0-2.0); EOSINOPHIL # 0.1 TH/MM3 (0-0.4); EOSINOPHIL % 1.7 % (0.0-4.0); LYMPH % 29.8 % (9.0-44.0); MEAN CELL VOLUME 87.3 FL (80.0-100.0); MEAN CORPUSCULAR HEMOGLOBIN 30.4 PG (27.0-34.0); MEAN CORPUSCULAR HGB CONC 34.9 % (32.0-36.0); MEAN PLATELET VOLUME 7.7 FL (7.0-11.0); MONO % 7.8 % (0.0-8.0); MONOCYTE # 0.5 TH/MM3 (0-0.9); NEUT % 60.1 % (16.0-70.0); PLATELET COUNT 270 TH/MM3 (150-450); RED BLOOD COUNT 5.26 MIL/MM3 (4.50-5.90); RED CELL DISTRIBUTION WIDTH 13.4 % (11.6-17.2); WHITE BLOOD COUNT 6.7 TH/MM3 (4.0-11.0)
[2017-12-17 12:37] LABS: ALBUMIN 3.5 GM/DL (3.4-5.0); AST (GOT) 24 U/L (15-37); BICARBONATE 25.5 MEQ/L (21.0-32.0); BLOOD UREA NITROGEN 11 MG/DL (7-18); CALCIUM 8.7 MG/DL (8.5-10.1); CHLORIDE 107 MEQ/L (98-107); CREATININE 0.72 MG/DL (0.60-1.30); GLOMERULAR FILTRATION RATE 134 ML/MIN (>89); GLUCOSE,RANDOM 98 MG/DL (74-106); SODIUM (NA) 140 MEQ/L (136-145)
[2017-12-17 12:41] LABS: ALKALINE PHOSPHATASE 70 U/L (45-117); ALT (GPT) 52 U/L (12-78); TOTAL BILIRUBIN ADULT 0.7 MG/DL (0.2-1.0); TOTAL PROTEIN 7.3 GM/DL (6.4-8.2)
[2017-12-17] MEDS ORDERED: ASA325 PO (15:06)
[2017-12-17] MEDS ORDERED: NITR2OIN TOPICAL (15:06)
--- NOTE | 2017-12-17 15:07 | HHI.DCPOC ---
Discharge Care Plan Diagnosis: (1) Chest pain (2) Elevated troponin Goals to Promote Your Health * To prevent worsening of your condition and complications * To maintain your health at the optimal level Directions to Meet Your Goals Take your medications as prescribed Follow your dietary instruction Follow activity as directed Keep your appointments as scheduled Take your immunizations and boosters as scheduled If your symptoms worsen call your PCP, if no PCP go to Urgent Care Center or Emergency Room Smoking is Dangerous to Your Health. Avoid second hand smoke Call the 24-hour hour crisis hotline for domestic abuse at Eliana Palmer MD R2 Dec 17, 2017 15:07 Hugo Grullon MD, R1 Dec 17, 2017 19:03
[2017-12-17] MEDS ORDERED: ATOR40TA16 PO (15:11)
--- NOTE | 2017-12-18 14:52 | HHI.FPPN ---
Addendum to progress note ADDENDUM Reason for addendum: Additonal documentation Additional information Delayed entry last night (12/17) received page from nurse that pt was wanted to speak with doctor before leaving the hospital. -Discussed normal results of cardiac cath and informed pt that based on the medical team's conversation with Dr. Bailey the pt was medically cleared to be discharged. Pt informed that he was ok for him to fly to [place] and return to work. 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
== END 2017-12-17 19:40 | disposition home or self-care (01) | DRG 287 ==
LOC: NEPC 05:55 → NEDA 08:16 → N04A 15:13
PROVIDERS: ADMIT Family Medicine; ATTEND Family Medicine
PROC: B2111ZZ Fluoroscopy of Multiple Coronary Arteries using Low Osmolar Contrast (ICD-10-PCS; 2017-12-16)
PROC: B2151ZZ Fluoroscopy of Left Heart using Low Osmolar Contrast (ICD-10-PCS; 2017-12-16)
PROC: 4A023N7 Measurement of Cardiac Sampling and Pressure, Left Heart, Percutaneous Approach (ICD-10-PCS; principal; 2017-12-16 11:00)
DX: R07.2 Precordial pain (principal); F12.90 Cannabis use, unspecified, uncomplicated; R74.8 Abnormal levels of other serum enzymes; R19.7 Diarrhea, unspecified; I25.10 Atherosclerotic heart disease of native coronary artery without angina pectoris; I45.9 Conduction disorder, unspecified; Z23 Encounter for immunization
CPT/HCPCS: 71045; 80048; 80053; 80061; 80076; 80307; 82550; 82552; 83036; 83735; 83880; 84443; 84484; 85025; 85379; 85652; 86140; 90686; 93005; 93306; 93458; 99285; C1769; C1893; J1200; J1644; J2250; J3010; J7030; Q2038; Q9967